=== PATIENT | female | born 1990 | race American Indian/Alaskan Native ===

== ENCOUNTER 2018-03-17 17:36 | Emergency (ER) | payer OTHER ==
[2018-03-17 17:42] VITALS: BP 160/93
[2018-03-17 19:06] LABS: HCG Qualitative,Urine Negative (Negative)
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
== END 2018-03-17 22:35 | disposition home or self-care (01) ==
LOC: ED 17:36
DX: M54.2 Cervicalgia (principal)
CPT/HCPCS: 81025; 99283